=== PATIENT | female | born 2000 | race Two or more races ===

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

== ENCOUNTER 2021-04-12 09:28 | Emergency (ER) | payer OTHER ==
[~2021-04-12] VITALS: Ht 149.9 cm; Wt 49.9 kg
--- NOTE | 2021-04-12 09:37 | NUR ---
PT AMBULATORY TO ROOM FROM [facility], CHANGED INTO GOWN, PT C/O HAVING BURNING ON URINATION, CLOUDY URINE AND FREQUENCY X 2 DAYS.
--- NOTE | 2021-04-12 09:40 | NUR ---
PT AMBULATORY TO BR FOR URINE SAMPLE WITH UPRIGHT STEADY GAIT
[2021-04-12] MEDS ORDERED: PHENAZOPYRIDINE 200 MG TABLET ONE (09:42)
[2021-04-12 09:47] VITALS: BP 109/70
--- NOTE | 2021-04-12 09:47 | NUR ---
ERP AT BS FOR EVAL
--- NOTE | 2021-04-12 09:50 | NUR ---
PT MEDICATED PER EMAR, URINE SAMEPL SENT. PT DENIES ANY NEEDS AT THIS TIME
[2021-04-12] MEDS ORDERED: PHENAZOPYRIDINE 200 MG TABLET PO ONE (10:00)
[2021-04-12 10:01] LABS: HCG UR SG 1.007 (1.003-1.030); MICROSCOPIC AUTO
--- NOTE | 2021-04-12 10:30 | NUR ---
Patient given discharge instructions and rx, they have confirmed that they understand the instructions. Patient ambulatory with steady gait.
== END 2021-04-12 10:32 | disposition home or self-care (01) ==
LOC: ED 10:19
DX: N30.00 Acute cystitis without hematuria (principal)
CPT/HCPCS: 81001; 81025; 87077; 87086; 87186; 99283